=== PATIENT | female | born 1985 | race Caucasian/White ===

== ENCOUNTER 2019-09-14 08:20 | Inpatient (IN) | payer BC ==
[2019-09-14] MEDS ORDERED: Methylergonovine 0.2 MG/1 ML Amp IM PRN (10:36)
[2019-09-14] MEDS ORDERED: Sodium Chloride 0.9% 10 ML SDV IV PRN (10:36)
[2019-09-14] MEDS ORDERED: Sodium Chloride 0.9% 10 ML Syringe FLUSH PRN (10:36)
[2019-09-14] MEDS ORDERED: Tranexamic Acid 1,000 MG in Sodium Chloride 0.9% 100 ML IV PRN (10:36)
[2019-09-14] MEDS ORDERED: Water For Irrigation,Sterile 1,000 ML Container IRR PRN (10:36)
[2019-09-14] MEDS ORDERED: Carboprost Tromethamine 250 MCG/1 ML Amp IM PRN (10:36)
[2019-09-14] MEDS ORDERED: Misoprostol 200 MCG Tab PO PRN (10:36)
[2019-09-14] MEDS ORDERED: Butorphanol 1 MG/ML SDV IVPUSH PRN (10:36)
[2019-09-14] MEDS ORDERED: Sodium Chloride 0.9% 2.5 ML Syringe FLUSH PRN (10:36)
[2019-09-14] MEDS ORDERED: Lidocaine 1% 50 ML MDV INJECT PRN (10:36)
[2019-09-14] MEDS ORDERED: Nalbuphine 10 MG/1 ML Vial IVPUSH PRN (10:36)
[2019-09-14] MEDS ORDERED: Oxytocin/0.9 % Sodium Chloride 30 UNIT/500 ML BAG IV SCH (10:45)
[2019-09-14] MEDS: Lactated Ringers 1,000 ML IV SCH ×2 (10:55→11:58)
[2019-09-14] MEDS ORDERED: Bupivicaine/fentaNYL/NS 0 ML ONE (12:07)
[2019-09-14] MEDS ORDERED: fentaNYL 100 MCG/2 ML SDV ONE (12:08)
[2019-09-14] MEDS ORDERED: Bupivacaine 0.25% 10 ML SDV ONE (12:09)
[2019-09-14] MEDS ORDERED: Witch Hazel Medicated Pads 40/Jar TOP PRN (12:55)
[2019-09-14] MEDS ORDERED: Lanolin 100% Cream 7 GM Tube TOP PRN (12:55)
[2019-09-14] MEDS ORDERED: Acetaminophen 500 MG Tab PO PRN (12:55)
[2019-09-14] MEDS ORDERED: oxyCODONE 5 MG Tab PO PRN (12:55)
[2019-09-14] MEDS ORDERED: Benzocaine/Menthol 20%-0.5% Spray 78 GM Cannister TOP PRN (12:55)
[2019-09-14] MEDS ORDERED: Bisacodyl 10 MG Supp RECTAL PRN (12:55)
--- NOTE | 2019-09-14 13:00 | PCM.DEL ---
L & D Note - General Info Date of Service: 09/14/19 Mother's Due Date: 09/19/19 - Delivery Note Labor: Spontaneous Delivery Outcome: Livebirth Infant Delivery Method: Spontaneous Vaginal Delivery-Single Presentation: Vertex Nuchal Cord: Present Anesthesia Type: Local Anesthetic: Lidocaine (Xylocaine) 1% Plain Local Anesthetic Volume: 5cc Amniotic Fluid Description: Bloody Episiotomy Type: None Laceration: 1st Degree Suture type: Vicryl Suture size: 2-0 Placenta: Intact, Spontaneous Cord: 3 Vessels Resuscitation Needed: Yes : Suctioned, Stimulated, Warmed, [place] Used, Warmer Used Score 1 min: 7 Score 5 min: 9 - General Info Date of Service: 09/14/19 - Patient Data Weight - Most Recent: 92.079 kg Lab Results Last 24 Hours: Laboratory Results - last 24 hr 09/14/19 09/14/19 Range/Units 10:50 10:50 WBC 9.77 (4.0-11.0) K/uL RBC 4.13 L (4.30-5.90) M/uL Hgb 12.4 (12.0-16.0) g/dL Hct 38.4 (36.0-46.0) % MCV 93.0 (80.0-98.0) fL MCH 30.0 (27.0-32.0) pg MCHC 32.3 (31.0-37.0) g/dL RDW Std Deviation 49.0 (28.0-62.0) fl RDW Coeff of Steph 14 (11.0-15.0) % Plt Count 198 (150-400) K/uL MPV 12.40 H (7.40-12.00) fL Nucleated RBC % 0.0 /100WBC Nucleated RBCs # 0 K/uL Blood Type A POSITIVE Antibody Screen NEGATIVE Med Orders - Current: Current Medications Acetaminophen (Tylenol Extra Strength) 1,000 mg PO Q6H PRN PRN Reason: Pain Benzocaine/Menthol (Dermoplast Pain Relief 20%-0.5% [place]) 78 gm TOP ASDIRECTED PRN PRN Reason: Perineal Comfort Measure Bisacodyl (Dulcolax) 10 mg RECTAL ONETIME PRN PRN Reason: Constipation Bupropion HCl (Wellbutrin Xl) 150 mg PO DAILY ANKUR Butorphanol Tartrate (Stadol) 1 mg IVPUSH Q1H PRN PRN Reason: Pain Last Admin: 09/14/19 11:20 Dose: 1 mg Carboprost Tromethamine (Hemabate Ds) 250 mcg IM ASDIRECTED PRN PRN Reason: Post Hemorrhage Docusate Sodium (Colace) 100 mg PO BID PRN PRN Reason: Constipation Emollient Ointment (Lansinoh Hpa) 0 gm TOP ASDIRECTED PRN PRN Reason: Sore Nipples Escitalopram Oxalate (Lexapro) 20 mg PO DAILY [facility] Lactated Ringer's (Ringers, Lactated) 1,000 mls @ 150 mls/hr IV ASDIRECTED [facility] Last Admin: 09/14/19 11:58 Dose: 999 mls/hr Oxytocin/Sodium Chloride (Oxytocin 30 Unit/500 Ml-Ns) 30 unit in 500 mls @ 500 mls/hr IV TITRATE [facility] Tranexamic Acid 1,000 mg/ (Sodium Chloride) 110 mls @ 660 mls/hr IV ONETIME PRN PRN Reason: Bleeding Ibuprofen (Motrin) 800 mg PO Q8H PRN PRN Reason: Pain Lidocaine HCl (Xylocaine 1%) 50 ml INJECT ONETIME PRN PRN Reason: Laceration repair Methylergonovine Maleate (Methergine) 0.2 mg IM ASDIRECTED PRN PRN Reason: Post Hemorrhage Misoprostol (Cytotec) 200 mcg PO ONETIME PRN PRN Reason: Post Hemorrhage Nalbuphine HCl (Nubain) 10 mg IVPUSH Q1H PRN PRN Reason: Pain (severe 7-10) Oxycodone HCl (Oxycodone) 5 mg PO Q2H PRN PRN Reason: Pain Sodium Chloride (Saline Flush) 10 ml FLUSH ASDIRECTED PRN PRN Reason: Keep Vein Open Sodium Chloride (Saline Flush) 2.5 ml FLUSH ASDIRECTED PRN PRN Reason: Keep Vein Open Sodium Chloride (Normal Saline) 10 ml IV ASDIRECTED PRN PRN Reason: IV Use Sterile Water (Sterile Water For Irrigation) 1,000 ml IRR ASDIRECTED PRN PRN Reason: delivery Witch Nirmala (Tucks) 1 pad TOP ASDIRECTED PRN PRN Reason: comfort care Discontinued Medications Bupivacaine HCl (Sensorcaine-Mpf 0.25%) Confirm Administered Dose 10 ml .ROUTE .STK-MED ONE Stop: 09/14/19 12:10 Fentanyl (Sublimaze) Confirm Administered Dose 100 mcg .ROUTE .STK-MED ONE Stop: 09/14/19 12:09 Fentanyl/Bupivacaine HCl (Fentanyl/Bupivacaine/Ns 2 Mcg-0.125% 250 Ml) Confirm Administered Dose 250 mls @ as directed .ROUTE .STK-MED ONE Stop: 09/14/19 12:08 - Problem List & Annotations (1) Vaginal delivery SNOMED Code(s): 115810952 Code(s): O80 - ENCOUNTER FOR FULL-TERM UNCOMPLICATED DELIVERY Status: Acute Current Visit: Yes - Problem List Review Problem List Initiated/Reviewed/Updated: Yes - My Orders Last 24 Hours: My Active Orders 09/14/19 10:20 Patient Status [ADT] Routine Non Stress Test [RC] PER UNIT ROUTINE Up ad Luciana [RC] ASDIRECTED Vaginal Exam [RC] Click to Edit Vital Signs [RC] PER UNIT ROUTINE Resuscitation Status Routine 09/14/19 10:36 Notify Provider Vital Signs [RC] ASDIRECTED Butorphanol [Stadol] 1 mg IVPUSH Q1H PRN Carboprost Tromethamine [Hemabate DS] 250 mcg IM ASDIRECTED PRN Lidocaine 1% [Xylocaine 1%] 50 ml INJECT ONETIME PRN Methylergonovine [Methergine] 0.2 mg IM ASDIRECTED PRN Nalbuphine [Nubain] 10 mg IVPUSH Q1H PRN Sodium Chloride 0.9% [Normal Saline] 10 ml IV ASDIRECTED PRN Sodium Chloride 0.9% [Saline Flush] 10 ml FLUSH ASDIRECTED PRN Sodium Chloride 0.9% [Saline Flush] 2.5 ml FLUSH ASDIRECTED PRN Tranexamic Acid [Cyklokapron] 1,000 mg Sodium Chloride 0.9% [Normal Saline] 100 ml IV ONETIME Water For Irrigation,Sterile [Sterile Water for Irrigation] 1,000 ml IRR ASDIRECTED PRN miSOPROStoL [Cytotec] 200 mcg PO ONETIME PRN 09/14/19 10:37 Heart Tones [RC] CONTINUOUS Notify Provider [RC] PRN Up ad Luciana [RC] ASDIRECTED Vaginal Exam [RC] PRN Vital Signs [RC] PER UNIT ROUTINE Scalp Electrode [WOMSER] Per Unit Routine Peripheral IV Insertion Adult [OM.PC] Routine 09/14/19 10:38 Urinary Catheter Assessment [RC] ASDIRECTED 09/14/19 10:45 Insert Urinary Catheter [OM.PC] PRN Lactated Ringers [Ringers, Lactated] 1,000 ml IV ASDIRECTED Oxytocin/0.9 % Sodium Chloride [Oxytocin 30 Unit/500 ML-NS] 30 unit in 500 ml IV TITRATE 09/14/19 10:50 RPR (SYPHILIS SERO) W/ RFLX [REF] Routine 09/14/19 12:55 Patient Status [ADT] Routine May Shower [RC] ASDIRECTED Notify Provider Vital Signs [RC] ASDIRECTED Up ad Luciana [RC] ASDIRECTED Vital Signs [RC] PER UNIT ROUTINE Acetaminophen [Tylenol Extra Strength] 1,000 mg PO Q6H PRN Benzocaine/Menthol [Dermoplast Pain Relief 20%-0.5% [place]] 78 gm TOP ASDIRECTED PRN Docusate Sodium [Colace] 100 mg PO BID PRN Ibuprofen [Motrin] 800 mg PO Q8H PRN Lanolin [Lansinoh HPA] See Dose Instructions TOP ASDIRECTED PRN bisacodyL [Dulcolax] 10 mg RECTAL ONETIME PRN oxyCODONE 5 mg PO Q2H PRN witch Nirmala [Tucks] 1 pad TOP ASDIRECTED PRN Assess Lochia [WOMSER] Per Unit Routine Assess Uterine Involution [WOMSER] Per Unit Routine Breast Pump [WOMSER] Per Unit Routine Ice Therapy [OM.PC] Per Unit Routine Perineal Care [OM.PC] Per Unit Routine Peripheral IV Discontinue [OM.PC] Routine Sitz Bath [OM.PC] Per Unit Routine 09/14/19 12:56 Cooling Warming Measures [RC] ASDIRECTED 09/14/19 Lunch Clear Liquid Diet [DIET] Regular Diet [DIET] 09/15/19 05:11 HEMOGLOBIN/HEMATOCRIT,HH [HEME] Timed 09/15/19 09:00 Escitalopram [Lexapro] 20 mg PO DAILY buPROPion [Wellbutrin XL] 150 mg PO DAILY - Assessment Assessment:: 34yo s/p at 39w2d - Plan Plan:: Admit to unit for routine care.
[2019-09-14] MEDS: Docusate Sodium 100 MG Cap PO PRN (13:30)
[2019-09-14] MEDS: Ibuprofen 800 MG Tab PO PRN (14:47)
--- NOTE | 2019-09-14 19:25 | OR ---
SURGEON: Rosa Flores MD DATE OF PROCEDURE: 09/14/2019 PREOPERATIVE DIAGNOSES: 1. A 34-year-old, G3, P1-0-1-1, at 39 weeks and 2 days' gestation. 2. Labor. 3. Group B streptococcus negative. POSTOPERATIVE DIAGNOSES: 1. A 34-year-old, G3, P2-0-1-2, status post spontaneous vaginal delivery at 39 weeks and 2 days' gestation. 2. Group B streptococcus negative. 3. Nuchal cord x1. 4. First-degree perineal laceration. PROCEDURES: Spontaneous vaginal delivery and repair of first-degree perineal laceration. PRIMARY SURGEON: Rosa Flores MD ANESTHESIA: Stadol and 1% lidocaine. ESTIMATED BLOOD LOSS: 400 mL. FINDINGS: Live female in cephalic presentation. scores of 7 and 9 at one and five minutes respectively. Weight 3370 g. Nuchal cord x1. Placenta intact with 3-vessel cord. First-degree perineal laceration. INDICATIONS: This is a 34-year-old, G3, P1-0-1-1, who presented at 39 weeks and 2 days' gestation complaining of labor. Upon presentation, cervix was found to be 2 cm dilated and subsequently changed to 3 cm dilated. She was admitted to Labor and Delivery. She received Stadol for pain control and progressed to complete cervical dilation. I was called to the room. DESCRIPTION OF PROCEDURE: I arrived to the room. The scalp was at +4 station. Over the next contraction, the patient pushed and delivered a live female infant. Nuchal cord x1 was reduced after delivery of the body. The infant was placed on the maternal abdomen. After approximately 45 seconds, the cord was clamped and cut. The infant was taken to the warmer for resuscitation. The placenta then delivered via the Powell-Saini maneuver intact and with 3-vessel cord. The perineum was inspected and a first-degree perineal laceration was noted. This was infiltrated with 1% lidocaine. After adequate anesthesia, this was repaired with 2-0 Vicryl. The fundus was firm below the umbilicus with minimal lochia. The patient tolerated the delivery well. [id number] / MODL /[id number]
[2019-09-14] MEDS ORDERED: buPROPion 150 MG Tab.ER PO SCH (21:00)
[2019-09-14] MEDS ORDERED: Escitalopram 10 MG Tab PO SCH (21:00)
[2019-09-15] MEDS: Ibuprofen 800 MG Tab PO PRN ×2 (04:53→12:52)
[2019-09-15] MEDS: Docusate Sodium 100 MG Cap PO PRN (09:05)
--- NOTE | 2019-09-15 10:32 | PCM.PNPP ---
- General Info Date of Service: 09/15/19 Functional Status: Reports: Pain Controlled, Tolerating Diet, Ambulating - Review of Systems General: Reports: No Symptoms HEENT: Reports: No Symptoms Pulmonary: Reports: No Symptoms Cardiovascular: Reports: No Symptoms Gastrointestinal: Reports: No Symptoms Genitourinary: Reports: No Symptoms Musculoskeletal: Reports: No Symptoms Skin: Reports: No Symptoms Neurological: Reports: No Symptoms Psychiatric: Reports: No Symptoms - General Info Date of Service: 09/15/19 - Patient Data Vital Signs - Most Recent: Last Vital Signs Temp 36.2 C 09/15/19 07:35 Pulse 81 09/15/19 07:35 Resp 18 09/15/19 07:35 BP 107/58 L 09/15/19 07:35 Pulse Ox 97 09/15/19 07:35 Weight - Most Recent: 92.079 kg Lab Results - Last 24 Hours: Laboratory Results - last 24 hr 09/14/19 09/14/19 09/15/19 Range/Units 10:50 10:50 06:10 WBC 9.77 (4.0-11.0) K/uL RBC 4.13 L (4.30-5.90) M/uL Hgb 12.4 10.5 L (12.0-16.0) g/dL Hct 38.4 32.3 L (36.0-46.0) % MCV 93.0 (80.0-98.0) fL MCH 30.0 (27.0-32.0) pg MCHC 32.3 (31.0-37.0) g/dL RDW Std Deviation 49.0 (28.0-62.0) fl RDW Coeff of Steph 14 (11.0-15.0) % Plt Count 198 (150-400) K/uL MPV 12.40 H (7.40-12.00) fL Nucleated RBC % 0.0 /100WBC Nucleated RBCs # 0 K/uL Blood Type A POSITIVE Antibody Screen NEGATIVE Med Orders - Current: Current Medications Acetaminophen (Tylenol Extra Strength) 1,000 mg PO Q6H PRN PRN Reason: Pain Last Admin: 09/14/19 13:28 Dose: 1,000 mg Benzocaine/Menthol (Dermoplast Pain Relief 20%-0.5% [place]) 78 gm TOP ASDIRECTED PRN PRN Reason: Perineal Comfort Measure Last Admin: 09/14/19 14:47 Dose: 1 canister Bisacodyl (Dulcolax) 10 mg RECTAL ONETIME PRN PRN Reason: Constipation Bupropion HCl (Wellbutrin Xl) 150 mg PO BEDTIME [facility] Last Admin: 09/14/19 21:41 Dose: 150 mg Butorphanol Tartrate (Stadol) 1 mg IVPUSH Q1H PRN PRN Reason: Pain Last Admin: 09/14/19 11:20 Dose: 1 mg Carboprost Tromethamine (Hemabate Ds) 250 mcg IM ASDIRECTED PRN PRN Reason: Post Hemorrhage Docusate Sodium (Colace) 100 mg PO BID PRN PRN Reason: Constipation Last Admin: 09/15/19 09:05 Dose: 100 mg Emollient Ointment (Lansinoh Hpa) 0 gm TOP ASDIRECTED PRN PRN Reason: Sore Nipples Escitalopram Oxalate (Lexapro) 20 mg PO BEDTIME [facility] Last Admin: 09/14/19 21:42 Dose: 20 mg Lactated Ringer's (Ringers, Lactated) 1,000 mls @ 150 mls/hr IV ASDIRECTED [facility] Last Infusion: 09/14/19 12:30 Dose: 0 mls/hr Oxytocin/Sodium Chloride (Oxytocin 30 Unit/500 Ml-Ns) 30 unit in 500 mls @ 500 mls/hr IV TITRATE [facility] Last Admin: 09/14/19 12:30 Dose: 500 mls/hr Tranexamic Acid 1,000 mg/ (Sodium Chloride) 110 mls @ 660 mls/hr IV ONETIME PRN PRN Reason: Bleeding Ibuprofen (Motrin) 800 mg PO Q8H PRN PRN Reason: Pain Last Admin: 09/15/19 04:53 Dose: 800 mg Lidocaine HCl (Xylocaine 1%) 50 ml INJECT ONETIME PRN PRN Reason: Laceration repair Last Admin: 09/14/19 13:00 Dose: 50 ml Methylergonovine Maleate (Methergine) 0.2 mg IM ASDIRECTED PRN PRN Reason: Post Hemorrhage Misoprostol (Cytotec) 200 mcg PO ONETIME PRN PRN Reason: Post Hemorrhage Nalbuphine HCl (Nubain) 10 mg IVPUSH Q1H PRN PRN Reason: Pain (severe 7-10) Oxycodone HCl (Oxycodone) 5 mg PO Q2H PRN PRN Reason: Pain Sodium Chloride (Saline Flush) 10 ml FLUSH ASDIRECTED PRN PRN Reason: Keep Vein Open Sodium Chloride (Saline Flush) 2.5 ml FLUSH ASDIRECTED PRN PRN Reason: Keep Vein Open Sodium Chloride (Normal Saline) 10 ml IV ASDIRECTED PRN PRN Reason: IV Use Sterile Water (Sterile Water For Irrigation) 1,000 ml IRR ASDIRECTED PRN PRN Reason: delivery Last Admin: 09/14/19 13:00 Dose: 1,000 ml Witch Nirmala (Tucks) 1 pad TOP ASDIRECTED PRN PRN Reason: comfort care Last Admin: 09/14/19 14:47 Dose: 1 tub Discontinued Medications Bupivacaine HCl (Sensorcaine-Mpf 0.25%) Confirm Administered Dose 10 ml .ROUTE .Anagran-MED ONE Stop: 09/14/19 12:10 Last Admin: 09/14/19 20:23 Dose: Not Given Fentanyl (Sublimaze) Confirm Administered Dose 100 mcg .ROUTE .STK-MED ONE Stop: 09/14/19 12:09 Last Admin: 09/14/19 20:23 Dose: Not Given Fentanyl/Bupivacaine HCl (Fentanyl/Bupivacaine/Ns 2 Mcg-0.125% 250 Ml) Confirm Administered Dose 250 mls @ as directed .ROUTE .ExoMED ONE Stop: 09/14/19 12:08 Last Admin: 09/14/19 20:23 Dose: Not Given - Interaction Infant Disposition, : in Room with Family Interaction: Holding Feeding: Bottle Fed Infant Support Person: - Recovery Exam Fundal Tone: Firm Fundal Level: 1 Fingerbreadths Below Umbilicus Fundal Placement: Midline Lochia Amount: Scant Lochia Color: Rubra/Red Perineum Description: Other (see below) Other Perinuem Description: mild swelling Episiotomy/Laceration: Approximated Bladder Status: Voiding Urinary Elimination: Voided - Exam General: Alert, Oriented HEENT: Pupils Equal Neck: Supple Lungs: Normal Respiratory Effort GI/Abdominal Exam: Soft, Non-Tender, No Distention, No Mass Extremities: Normal Inspection, Non-Tender, No Pedal Edema Skin: Warm, Dry, Intact Neurological: No New Focal Deficit Psy/Mental Status: Alert, Normal Affect, Normal Mood - Problem List & Annotations (1) Vaginal delivery SNOMED Code(s): 274183640 Code(s): O80 - ENCOUNTER FOR FULL-TERM UNCOMPLICATED DELIVERY Status: Acute Current Visit: Yes - Problem List Review Problem List Initiated/Reviewed/Updated: Yes - My Orders Last 24 Hours: My Active Orders 09/15/19 08:56 Ready for Discharge [RC] PER UNIT ROUTINE - Assessment Assessment:: PPD#1 after , stable, minimal lochia, not . Denies pain or other concerns, would like to be discharged today. - Plan Plan:: Discharge instructions reviewed. Dismiss to home today.
== END 2019-09-15 14:20 | disposition home or self-care (01) | DRG 560 ==
LOC: MW.OB 08:20 → MW.OBCHECK 08:20 → MW.OB 10:30 → OBSVTOIN 12:26 → MW.OB 16:15
PROVIDERS: ADMIT Obstetrics & Gynecology; ATTEND Obstetrics & Gynecology
PROC: 10E0XZZ Delivery of Products of Conception, External Approach (ICD-10-PCS; principal; 2019-09-14)
PROC: 0HQ9XZZ Repair Perineum Skin, External Approach (ICD-10-PCS; 2019-09-14)
DX: O69.81X0 Labor and delivery complicated by cord around neck, without compression, not applicable or unspecified (principal); O70.1 Second degree perineal laceration during delivery; Z3A.39 39 weeks gestation of pregnancy; Z37.0 Single live birth
CPT/HCPCS: 36415; 59025; 59409; 85014; 85018; 85027; 86592; 86593; 86850; 86900; 86901; A9270-GY; J0595; J2001; J2590; J7120

== ENCOUNTER 2021-05-04 04:41 | Inpatient (IN) | payer BC ==
[2021-05-04] MEDS ORDERED: Misoprostol 200 MCG Tab PO PRN (05:13)
[2021-05-04] MEDS ORDERED: Butorphanol 1 MG/ML SDV IVPUSH PRN (05:13)
[2021-05-04] MEDS ORDERED: Nalbuphine 10 MG/1 ML Vial IVPUSH PRN (05:13)
[2021-05-04] MEDS ORDERED: Sodium Chloride 0.9% 20 ML SDV IV PRN (05:13)
[2021-05-04] MEDS ORDERED: Water For Irrigation,Sterile 1,000 ML Container IRR PRN (05:13)
[2021-05-04] MEDS ORDERED: Carboprost Tromethamine 250 MCG/1 ML Amp IM PRN (05:13)
[2021-05-04] MEDS ORDERED: Terbutaline 1 MG/ML SDV SUBCUT PRN (05:13)
[2021-05-04] MEDS ORDERED: Lidocaine 1% 50 ML MDV INJECT PRN (05:13)
[2021-05-04] MEDS ORDERED: Sodium Chloride 0.9% 2.5 ML Syringe FLUSH PRN (05:13)
[2021-05-04] MEDS ORDERED: Sodium Chloride 0.9% 10 ML Syringe FLUSH PRN (05:13)
[2021-05-04] MEDS ORDERED: Ondansetron 4 MG/2 ML SDV IVPUSH PRN (05:13)
[2021-05-04] MEDS ORDERED: Tranexamic Acid 1,000 MG in Sodium Chloride 0.9% 100 ML IV PRN ×2 (05:13→13:16)
[2021-05-04] MEDS ORDERED: Methylergonovine 0.2 MG/1 ML Amp IM PRN ×2 (05:13→13:16)
[2021-05-04] MEDS ORDERED: Oxytocin/0.9 % Sodium Chloride 30 UNIT/500 ML BAG IV SCH ×2 (05:15)
[2021-05-04] MEDS ORDERED: Lactated Ringers 1,000 ML IV SCH (05:15)
[2021-05-04] MEDS ORDERED: Ropivacaine HCl/PF 200 ML ONE (08:59)
[2021-05-04] MEDS ORDERED: ePHEDrine 50 MG/ML SDV IVPUSH PRN ×2 (09:18)
--- NOTE | 2021-05-04 09:19 | PCM.PREANE ---
Preanesthetic Assessment - Anesthesia/Transfusion/Family Hx Anesthesia History: Prior Anesthesia Without Reaction Transfusion History: No Prior Transfusion(s) Type of Transfusion Reactions: Reports: Unknown - Review of Systems General: No Symptoms Pulmonary: No Symptoms Cardiovascular: No Symptoms Gastrointestinal: No Symptoms Neurological: No Symptoms Other: Reports: None - Physical Assessment NPO Status Date: 05/04/21 NPO Status Time: 00:00 Height: 5 ft 3 in Weight: 203 lb ASA Class: 2 Mental Status: Alert & Oriented x3 Airway Class: Mallampati = 2 Dentition: Reports: Normal Dentition Thyro-Mental Finger Breadths: 3 Mouth Opening Finger Breadths: 3 ROM/Head Extension: Full Lungs: Clear to Auscultation, Normal Respiratory Effort Cardiovascular: Regular Rate, Regular Rhythm - Lab Values: Laboratory Last Values WBC 7.10 K/uL (4.0-11.0) 05/04/21 05:10 RBC 4.05 M/uL (4.30-5.90) L 05/04/21 05:10 Hgb 12.3 g/dL (12.0-16.0) 05/04/21 05:10 Hct 36.6 % (36.0-46.0) 05/04/21 05:10 MCV 90.4 fL (80.0-98.0) 05/04/21 05:10 MCH 30.4 pg (27.0-32.0) 05/04/21 05:10 MCHC 33.6 g/dL (31.0-37.0) 05/04/21 05:10 RDW Std Deviation 47.4 fl (28.0-62.0) 05/04/21 05:10 RDW Coeff of Steph 15 % (11.0-15.0) 05/04/21 05:10 Plt Count 197 K/uL (150-400) 05/04/21 05:10 MPV 12.40 fL (7.40-12.00) H 05/04/21 05:10 Nucleated RBC % 0.0 /100WBC 05/04/21 05:10 Nucleated RBCs # 0 K/uL 05/04/21 05:10 SARS-CoV-2 RNA (ALIRIO) NEGATIVE (NEGATIVE) 05/04/21 05:25 Blood Type A POSITIVE 05/04/21 05:10 Antibody Screen NEGATIVE 05/04/21 05:10 - Allergies Allergies/Adverse Reactions: Allergies Allergy/AdvReac Type Severity Reaction Status Date / Time No Known Allergies Allergy Verified 07/22/19 09:31 - Acknowledgements Anesthesia Type Planned: Epidural Pt an Appropriate Candidate for the Planned Anesthesia: Yes Alternatives and Risks of Anesthesia Discussed w Pt/Guardian: Yes Pt/Guardian Understands and Agrees with Anesthesia Plan: Yes PreAnesthesia Questionnaire HEENT History: Reports: None Cardiovascular History: Reports: None Respiratory History: Reports: None Gastrointestinal History: Reports: None Genitourinary History: Reports: None EXECUTIVE CONSULTANT History: Reports: Musculoskeletal History: Reports: None Neurological History: Reports: None Psychiatric History: Reports: None Endocrine/Metabolic History: Reports: None Hematologic History: Reports: None Immunologic History: Reports: None Oncologic (Cancer) History: Reports: None Dermatologic History: Reports: None - Infectious Disease History Infectious Disease History: Reports: Chicken Pox, Novel Coronavirus - Past Surgical History Head Surgeries/Procedures: Reports: None HEENT Surgical History: Reports: Tonsillectomy Cardiovascular Surgical History: Reports: None Respiratory Surgical History: Reports: None GI Surgical History: Reports: Appendectomy Female Surgical History: Reports: None Endocrine Surgical History: Reports: None Neurological Surgical History: Reports: None Musculoskeletal Surgical History: Reports: Other (See Below) Other Musculoskeletal Surgeries/Procedures:: joint repair both foot in 2016 and 2019 due to loosened cartilage Oncologic Surgical History: Reports: None Dermatological Surgical History: Reports: None - SUBSTANCE USE Tobacco Use Status *Q: Former Tobacco User Tobacco Use Within Last Twelve Months: Cigarettes Second Hand Smoke Exposure: No Recreational Drug Use History: No - HOME MEDS Home Medications: Home Meds Docusate Sodium [Colace] 100 mg PO DAILY 08/30/19 [History] Doxylamine Succinate [Unisom] 08/30/19 [History] Escitalopram [Lexapro] 20 mg PO DAILY 08/30/19 [History] Iron 08/30/19 [History] Magnesium Hydroxide [Goodman' Milk of Magnesia] 08/30/19 [History] Melatonin 08/30/19 [History] Pnv #30/Iron Carb&Aspg/Fa/Om3 [OB Complete with DHA Softgel] 08/30/19 [History] buPROPion HCL [Wellbutrin Xl] 150 mg PO 08/30/19 [History] - CURRENT (IN HOUSE) MEDS Current Meds: Current Medications Butorphanol Tartrate (Butorphanol 1 Mg/Ml Sdv) 1 mg IVPUSH Q1H PRN PRN Reason: Pain (severe 7-10) Carboprost Tromethamine (Carboprost Tromethamine 250 Mcg/1 Ml Amp) 250 mcg IM ASDIRECTED PRN PRN Reason: Post Hemorrhage Oxytocin/Sodium Chloride (Oxytocin 30 Unit In Ns 0.9% 500 Ml Premix) 30 unit in 500 mls @ 999 mls/hr IV TITRATE ANKUR Tranexamic Acid 1,000 mg/ (Sodium Chloride) 110 mls @ 660 mls/hr IV ONETIME PRN PRN Reason: Bleeding Oxytocin/Sodium Chloride (Oxytocin 30 Unit In Ns 0.9% 500 Ml Premix) 30 unit in 500 mls @ 2 mls/hr IV TITRATE ANKUR; Protocol Last Titration: 05/04/21 07:25 Dose: 6 munits/min, 6 mls/hr Documented by: Lactated Ringer's (Ringers, Lactated) 1,000 mls @ 150 mls/hr IV ASDIRECTED ANKUR Last Admin: 05/04/21 06:05 Dose: 150 mls/hr Documented by: Lidocaine HCl (Lidocaine 1% 50 Ml Mdv) 50 ml INJECT ONETIME PRN PRN Reason: Laceration repair Methylergonovine Maleate (Methylergonovine 0.2 Mg/1 Ml Amp) 0.2 mg IM ASDIRECTED PRN PRN Reason: Post Hemorrhage Misoprostol (Misoprostol 200 Mcg Tab) 200 mcg PO ONETIME PRN PRN Reason: Post Hemorrhage Nalbuphine HCl (Nalbuphine 10 Mg/1 Ml Vial) 10 mg IVPUSH Q1H PRN PRN Reason: Pain (severe 7-10) Ondansetron HCl (Ondansetron 4 Mg/2 Ml Sdv) 4 mg IVPUSH Q4H PRN PRN Reason: Nausea/Vomiting Sodium Chloride (Sodium Chloride 0.9% 10 Ml Syringe) 10 ml FLUSH ASDIRECTED PRN PRN Reason: Keep Vein Open Sodium Chloride (Sodium Chloride 0.9% 2.5 Ml Syringe) 2.5 ml FLUSH ASDIRECTED PRN PRN Reason: Keep Vein Open Sodium Chloride (Sodium Chloride 0.9% 20 Ml Sdv) 10 ml IV ASDIRECTED PRN PRN Reason: IV Use Sterile Water (Water For Irrigation,Sterile 1,000 Ml Container) 1,000 ml IRR ASDIRECTED PRN PRN Reason: delivery Terbutaline Sulfate (Terbutaline 1 Mg/Ml Sdv) 0.25 mg SUBCUT ASDIRECTED PRN PRN Reason: Tacysystole Discontinued Medications Ropivacaine (Naropin 0.2%) Confirm Administered Dose 200 mls @ as directed .[facility] Stop: 05/04/21 09:00
--- NOTE | 2021-05-04 09:19 | PCM.POSTAN ---
POST ANESTHESIA ASSESSMENT - MENTAL STATUS Mental Status: Alert, Oriented - RESPIRATORY Respiratory Status: Respiratory Rate WNL, Airway Patent, O2 Saturation Stable - CARDIOVASCULAR CV Status: Pulse Rate WNL, Blood Pressure Stable - GASTROINTESTINAL GI Status: No Symptoms - POST OP HYDRATION Hydration Status: Adequate & Stable
--- NOTE | 2021-05-04 09:21 | PCM.SN.2 ---
- Pre-Procedure Checklist Attending Provider Aware: Yes Chart Reviewed: Yes Consent Signed: Yes Labs Reviewed: Yes VS/FHR Reviewed: Yes Patient Identification Confirmation Method: Reports: Chart Visual, ID Band Visual, Verbal Patient Pt an Appropriate Candidate for the Planned Anesthesia: Yes Alternatives and Risks of Anesthesia Discussed w Pt/Guardian: Yes - Procedure Procedure Start Date: 05/04/21 Procedure Start Time: 08:[address]: Reports: Blood Pressure, Heart Rate, SPO2 Functional IV: Yes Safety Measures: Reports: Patient Identified, Procedure Verified, Site Verified, Procedure Time Out Patient Position: Reports: Sitting Prep: Reports: Alcohol x3, Betadine x3 Local Anesthetic: Reports: Intradermal Wheal w Lidocaine 1% Regional Placement Level: Reports: L3-4 Needle: Reports: 17 g Touhy Approach: Reports: Midline Technique: Reports: YONATAN Glass Syringe Parasthesia: Reports: None Fluid Obtained: Reports: None Test Dose Medication: Reports: Lidocaine 1.5% w Epinephrine 1:200,000 Test Dose Response: Reports: Negative Continuous Infusion Start Time: 08:55 Continuous Infusion Medication: 0.2% Naropin Continuous Infusion Rate: 15 Continuous Infusion PCS Bolus Option: 4 Continuous Infusion Lockout Dose (cc/hr): 20 Patient Position Post Placement: Reports: Supline/HOLLIE Post-procedure Pain Level: 2 VS and FHR Monitored in Unit Post Placement: Yes Procedure End Date: 05/04/21 Procedure End Time: 09:44
[2021-05-04] MEDS ORDERED: Ropivacaine/PF 400 MG/200 ML PCA EPIDUR SCH (09:30)
[2021-05-04] MEDS ORDERED: fentaNYL 100 MCG/2 ML SDV ONE (11:08)
[2021-05-04] MEDS ORDERED: Lidocaine 2% 100 MG/5 ML Syringe ONE (11:08)
--- NOTE | 2021-05-04 13:15 | PCM.DEL ---
L & D Note - General Info Date of Service: 05/04/21 Mother's Due Date: 05/11/21 - Delivery Note Labor: Induced by Oxytocin Delivery Outcome: Livebirth Infant Delivery Method: Spontaneous Vaginal Delivery-Single Presentation: Left Occiput Anterior (INGA) Nuchal Cord: None Prep: Other Anesthesia Type: Epidural Amniotic Fluid Description: Clear Laceration: 2nd Degree Suture type: Vicryl Suture size: 3-0 Placenta: Intact, Spontaneous Cord: 3 Vessels Estimated Blood Loss: 200 Resuscitation Needed: Yes Score 1 min: 7 Score 5 min: 9 - General Info Date of Service: 05/04/21 - Patient Data Weight - Most Recent: 92.079 kg Lab Results Last 24 Hours: Laboratory Results - last 24 hr 05/04/21 05/04/21 05/04/21 Range/Units 05:10 05:10 05:25 WBC 7.10 (4.0-11.0) K/uL RBC 4.05 L (4.30-5.90) M/uL Hgb 12.3 (12.0-16.0) g/dL Hct 36.6 (36.0-46.0) % MCV 90.4 (80.0-98.0) fL MCH 30.4 (27.0-32.0) pg MCHC 33.6 (31.0-37.0) g/dL RDW Std Deviation 47.4 (28.0-62.0) fl RDW Coeff of Steph 15 (11.0-15.0) % Plt Count 197 (150-400) K/uL MPV 12.40 H (7.40-12.00) fL Nucleated RBC % 0.0 /100WBC Nucleated RBCs # 0 K/uL SARS-CoV-2 RNA (ALIRIO) NEGATIVE (NEGATIVE) Blood Type A POSITIVE Antibody Screen NEGATIVE Med Orders - Current: Current Medications Butorphanol Tartrate (Butorphanol 1 Mg/Ml Sdv) 1 mg IVPUSH Q1H PRN PRN Reason: Pain (severe 7-10) Carboprost Tromethamine (Carboprost Tromethamine 250 Mcg/1 Ml Amp) 250 mcg IM ASDIRECTED PRN PRN Reason: Post Hemorrhage Ephedrine Sulfate (Ephedrine 50 Mg/Ml Sdv) 10 mg IVPUSH Q1M PRN PRN Reason: Hypotension Ephedrine Sulfate (Ephedrine 50 Mg/Ml Sdv) 10 mg IVPUSH Q5M PRN PRN Reason: Hypotension Oxytocin/Sodium Chloride (Oxytocin 30 Unit In Ns 0.9% 500 Ml Premix) 30 unit in 500 mls @ 999 mls/hr IV TITRATE ANKUR Tranexamic Acid 1,000 mg/ (Sodium Chloride) 110 mls @ 660 mls/hr IV ONETIME PRN PRN Reason: Bleeding Oxytocin/Sodium Chloride (Oxytocin 30 Unit In Ns 0.9% 500 Ml Premix) 30 unit in 500 mls @ 2 mls/hr IV TITRATE ANKUR; Protocol Last Titration: 05/04/21 10:32 Dose: 12 munits/min, 12 mls/hr Documented by: Lactated Ringer's (Ringers, Lactated) 1,000 mls @ 150 mls/hr IV ASDIRECTED ANKUR Last Admin: 05/04/21 06:05 Dose: 150 mls/hr Documented by: Lidocaine HCl (Lidocaine 1% 50 Ml Mdv) 50 ml INJECT ONETIME PRN PRN Reason: Laceration repair Methylergonovine Maleate (Methylergonovine 0.2 Mg/1 Ml Amp) 0.2 mg IM ASDIRECTED PRN PRN Reason: Post Hemorrhage Miscellaneous Medication (Phenylephrine Hcl In 0.9% Nacl 1 Mg/10 Ml Syringe) 0.1 mg IVPUSH Q1M PRN PRN Reason: Hypotension Misoprostol (Misoprostol 200 Mcg Tab) 200 mcg PO ONETIME PRN PRN Reason: Post Hemorrhage Nalbuphine HCl (Nalbuphine 10 Mg/1 Ml Vial) 10 mg IVPUSH Q1H PRN PRN Reason: Pain (severe 7-10) Ondansetron HCl (Ondansetron 4 Mg/2 Ml Sdv) 4 mg IVPUSH Q4H PRN PRN Reason: Nausea/Vomiting Ropivacaine (Ropivacaine/Pf 400 Mg/200 Ml Rocket Engine Tester) 400 mg EPIDUR ASDIRECTED ANKUR Sodium Chloride (Sodium Chloride 0.9% 10 Ml Syringe) 10 ml FLUSH ASDIRECTED PRN PRN Reason: Keep Vein Open Sodium Chloride (Sodium Chloride 0.9% 2.5 Ml Syringe) 2.5 ml FLUSH ASDIRECTED PRN PRN Reason: Keep Vein Open Sodium Chloride (Sodium Chloride 0.9% 20 Ml Sdv) 10 ml IV ASDIRECTED PRN PRN Reason: IV Use Sterile Water (Water For Irrigation,Sterile 1,000 Ml Container) 1,000 ml IRR ASDIRECTED PRN PRN Reason: delivery Terbutaline Sulfate (Terbutaline 1 Mg/Ml Sdv) 0.25 mg SUBCUT ASDIRECTED PRN PRN Reason: Tacysystole Discontinued Medications Fentanyl (Fentanyl 100 Mcg/2 Ml Sdv) Confirm Administered Dose 100 mcg .ROUTE .STK-MED ONE Stop: 05/04/21 11:09 Ropivacaine (Naropin 0.2%) Confirm Administered Dose 200 mls @ as directed .ROUTE .STK-MED ONE Stop: 05/04/21 09:00 Lidocaine HCl (Lidocaine 2% 100 Mg/5 Ml Syringe) Confirm Administered Dose 100 mg .ROUTE .STK-MED ONE Stop: 05/04/21 11:09 - Exam Urinary Catheter Total Time: 0Days 0Hours - Problem List & Annotations (1) Vaginal delivery SNOMED Code(s): 698640931 Code(s): O80 - ENCOUNTER FOR FULL-TERM UNCOMPLICATED DELIVERY Status: Acute Current Visit: No - Problem List Review Problem List Initiated/Reviewed/Updated: Yes - My Orders Last 24 Hours: My Active Orders 05/04/21 05:10 RPR (SYPHILIS SERO) W/ RFLX [REF] Routine 05/04/21 05:13 Patient Status [ADT] Routine Bedrest Bathroom Privileges [RC] ASDIRECTED Communication Order [RC] ASDIRECTED Communication Order [RC] ASDIRECTED Heart Tones [RC] CONTINUOUS Non Stress Test [RC] PER UNIT ROUTINE May Shower [RC] ASDIRECTED Notify Provider [RC] PRN Notify Provider [RC] PRN Notify Provider [RC] STAT Oxygen Therapy [RC] ASDIRECTED Up ad Luciana [RC] ASDIRECTED Vaginal Exam [RC] PRN Vital Signs [RC] PER UNIT ROUTINE Butorphanol [Stadol] 1 mg IVPUSH Q1H PRN Carboprost Tromethamine [Hemabate DS] 250 mcg IM ASDIRECTED PRN Lidocaine 1% [Xylocaine 1%] 50 ml INJECT ONETIME PRN Methylergonovine [Methergine] 0.2 mg IM ASDIRECTED PRN Nalbuphine [Nubain] 10 mg IVPUSH Q1H PRN Ondansetron [Zofran] 4 mg IVPUSH Q4H PRN Sodium Chloride 0.9% [Normal Saline] 10 ml IV ASDIRECTED PRN Sodium Chloride 0.9% [Saline Flush] 10 ml FLUSH ASDIRECTED PRN Sodium Chloride 0.9% [Saline Flush] 2.5 ml FLUSH ASDIRECTED PRN Terbutaline [Brethine] 0.25 mg SUBCUT ASDIRECTED PRN Tranexamic Acid [Cyklokapron] 1,000 mg Sodium Chloride 0.9% [Normal Saline] 100 ml IV ONETIME Water For Irrigation,Sterile [Sterile Water for Irrigation] 1,000 ml IRR ASDIRECTED PRN miSOPROStoL [Cytotec] 200 mcg PO ONETIME PRN Scalp Electrode [WOMSER] Per Unit Routine Peripheral IV Insertion Adult [OM.PC] Routine Resuscitation Status Routine 05/04/21 05:15 Lactated Ringers [Ringers, Lactated] 1,000 ml IV ASDIRECTED Oxytocin/0.9 % Sodium Chloride [Oxytocin 30 Unit in NS 0.9% 500 ML Premix] 30 unit in 500 ml IV TITRATE Oxytocin/0.9 % Sodium Chloride [Oxytocin 30 Unit in NS 0.9% 500 ML Premix] 30 unit in 500 ml IV TITRATE 05/04/21 Breakfast Clear Liquid Diet [DIET]
[2021-05-04] MEDS ORDERED: Ibuprofen 400 MG Tab PO PRN (13:16)
[2021-05-04] MEDS ORDERED: Lanolin 100% Cream 7 GM Tube TOP PRN (13:16)
[2021-05-04] MEDS ORDERED: Acetaminophen 500 MG Tab PO PRN (13:16)
[2021-05-04] MEDS ORDERED: Docusate Sodium 100 MG Cap PO PRN (13:16)
[2021-05-04] MEDS ORDERED: Benzocaine/Menthol 20%-0.5% Spray 78 GM Cannister TOP PRN (13:16)
[2021-05-04] MEDS ORDERED: Bisacodyl 10 MG Supp RECTAL PRN (13:16)
[2021-05-04] MEDS ORDERED: Witch Hazel Medicated Pads 40/Jar TOP PRN (13:16)
--- NOTE | 2021-05-04 14:26 | PCM48HPAN ---
Post Anesthesia Note - EVALUATION WITHIN 48HRS OF ANESTHETIC Vital Signs in Normal Range: Yes Patient Participated in Evaluation: Yes Respiratory Function Stable: Yes Airway Patent: Yes Cardiovascular Function Stable: Yes Hydration Status Stable: Yes Pain Control Satisfactory: Yes Nausea and Vomiting Control Satisfactory: Yes Mental Status Recovered: Yes
[2021-05-04] MEDS: Ibuprofen 800 MG Tab PO PRN (15:10)
[2021-05-04] MEDS: buPROPion 150 MG Tab.ER PO SCH (21:43)
[2021-05-04] MEDS: Acetaminophen 500 MG Tab PO PRN (21:43)
[2021-05-04] MEDS: Escitalopram 10 MG Tab PO SCH (21:43)
--- NOTE | 2021-05-04 22:00 | OR ---
SURGEON: Elodia Hodge M.D. DATE OF PROCEDURE: 05/04/2021 PREOPERATIVE DIAGNOSES: 1. 39-week intrauterine . 2. History of rapid labor. 3. Lives remote from the hospital. POSTOPERATIVE DIAGNOSES: 1. 39-week intrauterine . 2. History of rapid labor. 3. Lives remote from the hospital. PROCEDURES: 1. Pitocin induction of labor. 2. Term spontaneous vaginal delivery. 3. Repair of second-degree laceration. PRIMARY SURGEON: Elodia Hodge M.D. ANESTHESIA: Epidural. ESTIMATED BLOOD LOSS: Less than 200 mL. FINDINGS: 1. Liveborn male. 2. score of 5 and 7. 3. Weighing 8 pounds 2 ounces. 4. Placenta spontaneous, Schultze intact with three vessels. 5. Second-degree perineal laceration repaired. COMPLICATIONS: None known. DISPOSITION: Mother is in LDR in good condition. Baby is in nursery for observation. BRIEF HISTORY: This is a 36-year-old female. She is G4, P2-0-1-2. She presents at 39 weeks' gestation for induction of labor. Initially, 2 cm, 70%, -3 station. She received Pitocin. When she was 3 to 4 cm dilated, artificial rupture of membranes was performed. She was known to be group B strep negative. Shortly thereafter, she received an epidural for pain control. She had category 1 heart tones throughout labor and at the time when she was 5 cm, she progressed rapidly to complete over the following 45 minutes, during which time she had some variable decelerations. DESCRIPTION OF PROCEDURE: With the patient in dorsal lithotomy position, the patient pushed over four contractions to a 5+ station, at which time the head was delivered spontaneously and atraumatically over the perineum with support, with subsequent delivery of the infant's shoulders and body without any difficulty. The infant was bulb suctioned by nose and mouth and the was handed to the mother in the presence of the nurse in attendance at delivery. The was a liveborn male. score of 5 and 7. The cord was clamped x2 and cut, and the infant was taken to the warmer for further resuscitation at approximately 1 minute. The cord blood was collected for cord ABGs as well as routine cord blood sampling. Pitocin was initiated after delivery of the infant to assist with delivery of the placenta which was delivered spontaneously, Schultze intact with three vessels. Upon inspection of pelvis and perineum, there were no periurethral, vaginal sidewall, cervical, or rectal lacerations. There was a small second-degree perineal laceration that was repaired with a running lock suture of 3-0 Vicryl for the vaginal mucosa, a deep running suture of the same for the perineal tissue, and a running subcuticular suture of the same for the skin. Final sponge, needle, and instrument counts were correct. There were no complications. Mother is in LDR in good condition, and baby is in nursery under observation with the dehydration unit operator. AXEL / JOSE J /[id number]
[2021-05-05] MEDS: Ibuprofen 800 MG Tab PO PRN ×3 (04:44→22:13)
[2021-05-05] MEDS: Acetaminophen 500 MG Tab PO PRN ×4 (04:45→22:13)
[2021-05-05] MEDS ORDERED: Ondansetron 4 MG/2 ML SDV ONE ×2 (07:16→07:17)
[2021-05-05] MEDS ORDERED: fentaNYL 100 MCG/2 ML SDV ONE (07:16)
[2021-05-05] MEDS ORDERED: propofoL 100 ML ONE (07:17)
[2021-05-05] MEDS ORDERED: Lidocaine 2% 100 MG/5 ML Syringe ONE (07:17)
[2021-05-05] MEDS ORDERED: Midazolam 1 MG/ML 2 ML SDV ONE (08:00)
[2021-05-05] MEDS ORDERED: Metoclopramide 10 MG/2 ML SDV ONE (08:00)
[2021-05-05] MEDS ORDERED: Ketorolac 30 MG/ML SDV ONE (08:01)
--- NOTE | 2021-05-05 08:40 | PCM.PNPP ---
- General Info Date of Service: 05/05/21 Functional Status: Reports: Pain Controlled, Tolerating Diet, Ambulating, Urinating - Review of Systems General: Reports: No Symptoms HEENT: Reports: No Symptoms Pulmonary: Reports: No Symptoms Cardiovascular: Reports: No Symptoms Gastrointestinal: Reports: No Symptoms Genitourinary: Reports: No Symptoms Musculoskeletal: Reports: No Symptoms Skin: Reports: No Symptoms Neurological: Reports: No Symptoms Psychiatric: Reports: No Symptoms - Patient Data Vital Signs - Most Recent: Last Vital Signs Temp 35.9 C L 05/05/21 04:00 Pulse 85 05/05/21 04:00 Resp 18 05/05/21 04:00 BP 126/70 05/05/21 04:00 Pulse Ox 96 05/04/21 19:00 Weight - Most Recent: 92.079 kg Lab Results - Last 24 Hours: Laboratory Results - last 24 hr 05/04/21 05/05/21 Range/Units 12:56 06:10 Hgb 11.2 L (12.0-16.0) g/dL Hct 33.9 L (36.0-46.0) % Cord ABG pH 7.247 (7.18-7.38) Cord ABG Base Excess -4 (-10--2) Cord VBG pH 7.221 L (7.25-7.45) Cord VBG Base Excess -5 (-10--2) Med Orders - Current: Current Medications Acetaminophen (Acetaminophen 500 Mg Tab) 500 mg PO Q4H PRN PRN Reason: Pain (mild 1-3) Acetaminophen (Acetaminophen 500 Mg Tab) 1,000 mg PO Q4H PRN PRN Reason: Pain (mild 1-3) Last Admin: 05/05/21 04:45 Dose: 1,000 mg Documented by: Benzocaine/Menthol (Benzocaine/Menthol 20%-0.5% Bunkie 78 Gm Cannister) 78 gm TOP ASDIRECTED PRN PRN Reason: Perineal Comfort Measure Last Admin: 05/04/21 15:09 Dose: 1 canister Documented by: Bisacodyl (Bisacodyl 10 Mg Supp) 10 mg RECTAL ONETIME PRN PRN Reason: Constipation Bupropion HCl (Bupropion 150 Mg Tab.Er) 150 mg PO BEDTIME AKNUR Last Admin: 05/04/21 21:43 Dose: 150 mg Documented by: Docusate Sodium (Docusate Sodium 100 Mg Cap) 100 mg PO Q12H PRN PRN Reason: Constipation Docusate Sodium (Docusate Sodium 100 Mg Cap) 100 mg PO DAILY [facility] Emollient Ointment (Lanolin 100% Cream 7 Gm Tube) 0 gm TOP ASDIRECTED PRN PRN Reason: Sore Nipples Escitalopram Oxalate (Escitalopram 10 Mg Tab) 20 mg PO BEDTIME ANKUR Last Admin: 05/04/21 21:43 Dose: 20 mg Documented by: Tranexamic Acid 1,000 mg/ (Sodium Chloride) 110 mls @ 660 mls/hr IV ONETIME PRN PRN Reason: Bleeding Ibuprofen (Ibuprofen 400 Mg Tab) 400 mg PO Q4H PRN PRN Reason: Pain (mild 1-3) Ibuprofen (Ibuprofen 800 Mg Tab) 800 mg PO Q6H PRN PRN Reason: Cramping Last Admin: 05/05/21 04:44 Dose: 800 mg Documented by: Methylergonovine Maleate (Methylergonovine 0.2 Mg/1 Ml Amp) 0.2 mg IM ONETIME PRN PRN Reason: Excessive Vaginal Bleeding Witch Helene (Witch Helene Medicated Pads 40/Jar) 1 pad TOP ASDIRECTED PRN PRN Reason: comfort care Last Admin: 05/04/21 15:09 Dose: 1 tub Documented by: Discontinued Medications Butorphanol Tartrate (Butorphanol 1 Mg/Ml Sdv) 1 mg IVPUSH Q1H PRN PRN Reason: Pain (severe 7-10) Carboprost Tromethamine (Carboprost Tromethamine 250 Mcg/1 Ml Amp) 250 mcg IM ASDIRECTED PRN PRN Reason: Post Hemorrhage Ephedrine Sulfate (Ephedrine 50 Mg/Ml Sdv) 10 mg IVPUSH Q1M PRN PRN Reason: Hypotension Ephedrine Sulfate (Ephedrine 50 Mg/Ml Sdv) 10 mg IVPUSH Q5M PRN PRN Reason: Hypotension Fentanyl (Fentanyl 100 Mcg/2 Ml Sdv) Confirm Administered Dose 100 mcg .ROUTE .STK-MED ONE Stop: 05/04/21 11:09 Fentanyl (Fentanyl 100 Mcg/2 Ml Sdv) Confirm Administered Dose 100 mcg .ROUTE .STK-MED ONE Stop: 05/05/21 07:17 Oxytocin/Sodium Chloride (Oxytocin 30 Unit In Ns 0.9% 500 Ml Premix) 30 unit in 500 mls @ 999 mls/hr IV TITRATE ANKUR Last Infusion: 05/04/21 13:04 Dose: 500 mls/hr Documented by: Tranexamic Acid 1,000 mg/ (Sodium Chloride) 110 mls @ 660 mls/hr IV ONETIME PRN PRN Reason: Bleeding Oxytocin/Sodium Chloride (Oxytocin 30 Unit In Ns 0.9% 500 Ml Premix) 30 unit in 500 mls @ 2 mls/hr IV TITRATE ANKUR; Protocol Last Titration: 05/04/21 12:48 Dose: 0 munits/min, 0 mls/hr Documented by: Lactated Ringer's (Ringers, Lactated) 1,000 mls @ 150 mls/hr IV ASDIRECTED ANKUR Last Admin: 05/04/21 06:05 Dose: 150 mls/hr Documented by: Ropivacaine (Naropin 0.2%) Confirm Administered Dose 200 mls @ as directed .ROUTE .STK-MED ONE Stop: 05/04/21 09:00 Last Admin: 05/05/21 07:39 Dose: Not Given Documented by: Propofol (Diprivan 100 Ml) Confirm Administered Dose 100 mls @ as directed .ROUTE .STK-MED ONE Stop: 05/05/21 07:18 Ketorolac Tromethamine (Ketorolac 30 Mg/Ml Sdv) Confirm Administered Dose 30 mg .ROUTE .STK-MED ONE Stop: 05/05/21 08:02 Lidocaine HCl (Lidocaine 1% 50 Ml Mdv) 50 ml INJECT ONETIME PRN PRN Reason: Laceration repair Lidocaine HCl (Lidocaine 2% 100 Mg/5 Ml Syringe) Confirm Administered Dose 100 mg .ROUTE .STK-MED ONE Stop: 05/04/21 11:09 Lidocaine HCl (Lidocaine 2% 100 Mg/5 Ml Syringe) Confirm Administered Dose 100 mg .ROUTE .STK-MED ONE Stop: 05/05/21 07:18 Methylergonovine Maleate (Methylergonovine 0.2 Mg/1 Ml Amp) 0.2 mg IM ASDIRECTED PRN PRN Reason: Post Hemorrhage Metoclopramide HCl (Metoclopramide 10 Mg/2 Ml Sdv) Confirm Administered Dose 10 mg .ROUTE .STK-MED ONE Stop: 05/05/21 08:01 Midazolam HCl (Midazolam 1 Mg/Ml 2 Ml Sdv) Confirm Administered Dose 2 mg .ROUTE .STK-MED ONE Stop: 05/05/21 08:01 Miscellaneous Medication (Phenylephrine Hcl In 0.9% Nacl 1 Mg/10 Ml Syringe) 0.1 mg IVPUSH Q1M PRN PRN Reason: Hypotension Misoprostol (Misoprostol 200 Mcg Tab) 200 mcg PO ONETIME PRN PRN Reason: Post Hemorrhage Nalbuphine HCl (Nalbuphine 10 Mg/1 Ml Vial) 10 mg IVPUSH Q1H PRN PRN Reason: Pain (severe 7-10) Ondansetron HCl (Ondansetron 4 Mg/2 Ml Sdv) 4 mg IVPUSH Q4H PRN PRN Reason: Nausea/Vomiting Ondansetron HCl (Ondansetron 4 Mg/2 Ml Sdv) Confirm Administered Dose 4 mg .ROUTE .STK-MED ONE Stop: 05/05/21 07:17 Ondansetron HCl (Ondansetron 4 Mg/2 Ml Sdv) Confirm Administered Dose 4 mg .ROUTE .STK-MED ONE Stop: 05/05/21 07:18 Ropivacaine (Ropivacaine/Pf 400 Mg/200 Ml Screwhead Polisher) 400 mg EPIDUR ASDIRECTED ANKUR Sodium Chloride (Sodium Chloride 0.9% 10 Ml Syringe) 10 ml FLUSH ASDIRECTED PRN PRN Reason: Keep Vein Open Sodium Chloride (Sodium Chloride 0.9% 2.5 Ml Syringe) 2.5 ml FLUSH ASDIRECTED PRN PRN Reason: Keep Vein Open Sodium Chloride (Sodium Chloride 0.9% 20 Ml Sdv) 10 ml IV ASDIRECTED PRN PRN Reason: IV Use Sterile Water (Water For Irrigation,Sterile 1,000 Ml Container) 1,000 ml IRR ASDIRECTED PRN PRN Reason: delivery Last Admin: 05/04/21 12:37 Dose: 1,000 ml Documented by: Terbutaline Sulfate (Terbutaline 1 Mg/Ml Sdv) 0.25 mg SUBCUT ASDIRECTED PRN PRN Reason: Tacysystole - Interaction Disposition, : in Room with Family Feeding: Bottle Fed Infant Support Person: - Recovery Exam Fundal Tone: Firm Fundal Level: At Umbilicus Fundal Placement: Midline Lochia Amount: Scant, Small Lochia Color: Rubra/Red Perineum Description: Other (see below) Other Perinuem Description: 2 degree laceration Episiotomy/Laceration: Approximated Bladder Status: Voiding - Exam General: Alert, Oriented Lungs: Normal Respiratory Effort GI/Abdominal Exam: Soft, Non-Tender, No Distention Extremities: Normal Inspection, Normal Range of Motion, Non-Tender, No Pedal Edema Skin: Warm, Dry, Intact Neurological: No New Focal Deficit Psy/Mental Status: Alert, Normal Affect, Normal Mood - Problem List & Annotations (1) Vaginal delivery SNOMED Code(s): 786190301 Code(s): O80 - ENCOUNTER FOR FULL-TERM UNCOMPLICATED DELIVERY Status: Acute Current Visit: No - Problem List Review Problem List Initiated/Reviewed/Updated: Yes - My Orders Last 24 Hours: My Active Orders 05/04/21 13:16 Patient Status [ADT] Routine May Shower [RC] ASDIRECTED Up ad Luciana [RC] ASDIRECTED Vital Signs [RC] PER UNIT ROUTINE Acetaminophen [Tylenol Extra Strength] 1,000 mg PO Q4H PRN Acetaminophen [Tylenol Extra Strength] 500 mg PO Q4H PRN Benzocaine/Menthol [Dermoplast Pain Relief 20%-0.5% Bunkie] 78 gm TOP ASDIRECTED PRN Docusate Sodium [Colace] 100 mg PO Q12H PRN Ibuprofen [Motrin] 400 mg PO Q4H PRN Ibuprofen [Motrin] 800 mg PO Q6H PRN Lanolin [Lansinoh HPA] See Dose Instructions TOP ASDIRECTED PRN Methylergonovine [Methergine] 0.2 mg IM ONETIME PRN Tranexamic Acid [Cyklokapron] 1,000 mg Sodium Chloride 0.9% [Normal Saline] 100 ml IV ONETIME bisacodyL [Dulcolax] 10 mg RECTAL ONETIME PRN witch Hleene [Tucks] 1 pad TOP ASDIRECTED PRN Assess Lochia [WOMSER] Per Unit Routine Assess Uterine Involution [WOMSER] Per Unit Routine Perineal Care [OM.PC] Per Unit Routine Peripheral IV Discontinue [OM.PC] Routine Resuscitation Status Routine 05/04/21 Dinner Regular Diet [DIET] 05/04/21 21:00 Escitalopram [Lexapro] 20 mg PO BEDTIME buPROPion [Wellbutrin XL] 150 mg PO BEDTIME 05/05/21 08:38 Ready for Discharge [RC] PER UNIT ROUTINE 05/05/21 09:00 Docusate Sodium [Colace] 100 mg PO DAILY - Assessment Assessment:: PPD#1 after , stable, minimal lochia, bottle feeding. Currently doing well on escitalopram and bupropion. Will continue - Plan Plan:: Discharge precautions reviewed.
[2021-05-05] MEDS ORDERED: Docusate Sodium 100 MG Cap PO SCH (09:00)
[2021-05-05] MEDS: buPROPion 150 MG Tab.ER PO SCH (20:50)
[2021-05-05] MEDS: Escitalopram 10 MG Tab PO SCH (20:50)
--- NOTE | 2021-05-06 09:09 | PCM.PNPP ---
- General Info Date of Service: 05/06/21 Functional Status: Reports: Pain Controlled, Tolerating Diet, Ambulating, Urinating - Review of Systems General: Reports: No Symptoms HEENT: Reports: No Symptoms Pulmonary: Reports: No Symptoms Cardiovascular: Reports: No Symptoms Gastrointestinal: Reports: No Symptoms Genitourinary: Reports: No Symptoms Musculoskeletal: Reports: No Symptoms Skin: Reports: No Symptoms Neurological: Reports: No Symptoms Psychiatric: Reports: No Symptoms - Patient Data Vital Signs - Most Recent: Last Vital Signs Temp 36.7 C 05/06/21 08:03 Pulse 92 05/06/21 08:03 Resp 17 05/06/21 05:15 BP 119/75 05/06/21 08:03 Pulse Ox 97 05/06/21 08:03 Weight - Most Recent: 92.079 kg Lab Results - Last 24 Hours: Laboratory Results - last 24 hr 05/04/21 Range/Units 05:10 RPR Non-Reac (Non-Reac) Med Orders - Current: Current Medications Acetaminophen (Acetaminophen 500 Mg Tab) 500 mg PO Q4H PRN PRN Reason: Pain (mild 1-3) Acetaminophen (Acetaminophen 500 Mg Tab) 1,000 mg PO Q4H PRN PRN Reason: Pain (mild 1-3) Last Admin: 05/05/21 22:13 Dose: 1,000 mg Documented by: Benzocaine/Menthol (Benzocaine/Menthol 20%-0.5% Roosevelt 78 Gm Cannister) 78 gm TOP ASDIRECTED PRN PRN Reason: Perineal Comfort Measure Last Admin: 05/04/21 15:09 Dose: 1 canister Documented by: Bisacodyl (Bisacodyl 10 Mg Supp) 10 mg RECTAL ONETIME PRN PRN Reason: Constipation Bupropion HCl (Bupropion 150 Mg Tab.Er) 150 mg PO BEDTIME [facility] Last Admin: 05/05/21 20:50 Dose: 150 mg Documented by: Docusate Sodium (Docusate Sodium 100 Mg Cap) 100 mg PO Q12H PRN PRN Reason: Constipation Docusate Sodium (Docusate Sodium 100 Mg Cap) 100 mg PO DAILY [facility] Last Admin: 05/05/21 11:34 Dose: Not Given Documented by: Emollient Ointment (Lanolin 100% Cream 7 Gm Tube) 0 gm TOP ASDIRECTED PRN PRN Reason: Sore Nipples Escitalopram Oxalate (Escitalopram 10 Mg Tab) 20 mg PO BEDTIME ANKUR Last Admin: 05/05/21 20:50 Dose: 20 mg Documented by: Tranexamic Acid 1,000 mg/ (Sodium Chloride) 110 mls @ 660 mls/hr IV ONETIME PRN PRN Reason: Bleeding Ibuprofen (Ibuprofen 400 Mg Tab) 400 mg PO Q4H PRN PRN Reason: Pain (mild 1-3) Ibuprofen (Ibuprofen 800 Mg Tab) 800 mg PO Q6H PRN PRN Reason: Cramping Last Admin: 05/05/21 22:13 Dose: 800 mg Documented by: Methylergonovine Maleate (Methylergonovine 0.2 Mg/1 Ml Amp) 0.2 mg IM ONETIME PRN PRN Reason: Excessive Vaginal Bleeding Witch Nirmala (Witch Nirmala Medicated Pads 40/Jar) 1 pad TOP ASDIRECTED PRN PRN Reason: comfort care Last Admin: 05/04/21 15:09 Dose: 1 tub Documented by: Discontinued Medications Butorphanol Tartrate (Butorphanol 1 Mg/Ml Sdv) 1 mg IVPUSH Q1H PRN PRN Reason: Pain (severe 7-10) Carboprost Tromethamine (Carboprost Tromethamine 250 Mcg/1 Ml Amp) 250 mcg IM ASDIRECTED PRN PRN Reason: Post Hemorrhage Ephedrine Sulfate (Ephedrine 50 Mg/Ml Sdv) 10 mg IVPUSH Q1M PRN PRN Reason: Hypotension Ephedrine Sulfate (Ephedrine 50 Mg/Ml Sdv) 10 mg IVPUSH Q5M PRN PRN Reason: Hypotension Fentanyl (Fentanyl 100 Mcg/2 Ml Sdv) Confirm Administered Dose 100 mcg .ROUTE .STK-MED ONE Stop: 05/04/21 11:09 Fentanyl (Fentanyl 100 Mcg/2 Ml Sdv) Confirm Administered Dose 100 mcg .ROUTE .STK-MED ONE Stop: 05/05/21 07:17 Oxytocin/Sodium Chloride (Oxytocin 30 Unit In Ns 0.9% 500 Ml Premix) 30 unit in 500 mls @ 999 mls/hr IV TITRATE [facility] Last Infusion: 05/04/21 13:04 Dose: 500 mls/hr Documented by: Tranexamic Acid 1,000 mg/ (Sodium Chloride) 110 mls @ 660 mls/hr IV ONETIME PRN PRN Reason: Bleeding Oxytocin/Sodium Chloride (Oxytocin 30 Unit In Ns 0.9% 500 Ml Premix) 30 unit in 500 mls @ 2 mls/hr IV TITRATE ANKUR; Protocol Last Titration: 05/04/21 12:48 Dose: 0 munits/min, 0 mls/hr Documented by: Lactated Ringer's (Ringers, Lactated) 1,000 mls @ 150 mls/hr IV ASDIRECTED ANKUR Last Admin: 05/04/21 06:05 Dose: 150 mls/hr Documented by: Ropivacaine (Naropin 0.2%) Confirm Administered Dose 200 mls @ as directed .ROUTE .STK-MED ONE Stop: 05/04/21 09:00 Last Admin: 05/05/21 07:39 Dose: Not Given Documented by: Propofol (Diprivan 100 Ml) Confirm Administered Dose 100 mls @ as directed .ROUTE .STK-MED ONE Stop: 05/05/21 07:18 Ketorolac Tromethamine (Ketorolac 30 Mg/Ml Sdv) Confirm Administered Dose 30 mg .ROUTE .STK-MED ONE Stop: 05/05/21 08:02 Lidocaine HCl (Lidocaine 1% 50 Ml Mdv) 50 ml INJECT ONETIME PRN PRN Reason: Laceration repair Lidocaine HCl (Lidocaine 2% 100 Mg/5 Ml Syringe) Confirm Administered Dose 100 mg .ROUTE .STK-MED ONE Stop: 05/04/21 11:09 Lidocaine HCl (Lidocaine 2% 100 Mg/5 Ml Syringe) Confirm Administered Dose 100 mg .ROUTE .STK-MED ONE Stop: 05/05/21 07:18 Methylergonovine Maleate (Methylergonovine 0.2 Mg/1 Ml Amp) 0.2 mg IM ASDIRECTED PRN PRN Reason: Post Hemorrhage Metoclopramide HCl (Metoclopramide 10 Mg/2 Ml Sdv) Confirm Administered Dose 10 mg .ROUTE .STK-MED ONE Stop: 05/05/21 08:01 Midazolam HCl (Midazolam 1 Mg/Ml 2 Ml Sdv) Confirm Administered Dose 2 mg .ROUTE .STK-MED ONE Stop: 05/05/21 08:01 Miscellaneous Medication (Phenylephrine Hcl In 0.9% Nacl 1 Mg/10 Ml Syringe) 0.1 mg IVPUSH Q1M PRN PRN Reason: Hypotension Misoprostol (Misoprostol 200 Mcg Tab) 200 mcg PO ONETIME PRN PRN Reason: Post Hemorrhage Nalbuphine HCl (Nalbuphine 10 Mg/1 Ml Vial) 10 mg IVPUSH Q1H PRN PRN Reason: Pain (severe 7-10) Ondansetron HCl (Ondansetron 4 Mg/2 Ml Sdv) 4 mg IVPUSH Q4H PRN PRN Reason: Nausea/Vomiting Ondansetron HCl (Ondansetron 4 Mg/2 Ml Sdv) Confirm Administered Dose 4 mg .ROUTE .STK-MED ONE Stop: 05/05/21 07:17 Ondansetron HCl (Ondansetron 4 Mg/2 Ml Sdv) Confirm Administered Dose 4 mg .ROUTE .STK-MED ONE Stop: 05/05/21 07:18 Ropivacaine (Ropivacaine/Pf 400 Mg/200 Ml Aerobics Teacher) 400 mg EPIDUR ASDIRECTED ANKUR Sodium Chloride (Sodium Chloride 0.9% 10 Ml Syringe) 10 ml FLUSH ASDIRECTED PRN PRN Reason: Keep Vein Open Sodium Chloride (Sodium Chloride 0.9% 2.5 Ml Syringe) 2.5 ml FLUSH ASDIRECTED PRN PRN Reason: Keep Vein Open Sodium Chloride (Sodium Chloride 0.9% 20 Ml Sdv) 10 ml IV ASDIRECTED PRN PRN Reason: IV Use Sterile Water (Water For Irrigation,Sterile 1,000 Ml Container) 1,000 ml IRR ASDIRECTED PRN PRN Reason: delivery Last Admin: 05/04/21 12:37 Dose: 1,000 ml Documented by: Terbutaline Sulfate (Terbutaline 1 Mg/Ml Sdv) 0.25 mg SUBCUT ASDIRECTED PRN PRN Reason: Tacysystole - Interaction Infant Disposition, : [place] in Room with Family Feeding: Bottle Fed Support Person: - Recovery Exam Fundal Tone: Firm Fundal Level: 1 Fingerbreadths Below Umbilicus Fundal Placement: Midline Lochia Amount: Scant Lochia Color: Rubra/Red Perineum Description: Other (see below) Other Perinuem Description: 2nd laceration with repair. Episiotomy/Laceration: Approximated Bladder Status: Voiding - Exam General: Alert, Oriented Lungs: Normal Respiratory Effort Extremities: Normal Inspection, Non-Tender, No Pedal Edema Neurological: No New Focal Deficit Psy/Mental Status: Alert, Normal Affect, Normal Mood - Problem List & Annotations (1) Vaginal delivery SNOMED Code(s): 011123109 Code(s): O80 - ENCOUNTER FOR FULL-TERM UNCOMPLICATED DELIVERY Status: Acute Current Visit: No - Problem List Review Problem List Initiated/Reviewed/Updated: Yes - My Orders Last 24 Hours: My Active Orders 05/05/21 09:00 Docusate Sodium [Colace] 100 mg PO DAILY - Assessment Assessment:: PPD#2 after , stable, minimal lochia, bottle feeding. Baby was kept for elevated bilirubin, anticipate discharge today. - Plan Plan:: Discharge precautions reviewed.
== END 2021-05-06 11:13 | disposition home or self-care (01) | DRG 560 ==
LOC: MW.OBCHECK 04:41 → MW.OB 04:42 → MW.OBCHECK 05:13 → INTOOBSV 12:47 → OBSVTOIN 12:47 → MW.OB 18:31
PROVIDERS: ADMIT Obstetrics & Gynecology; ATTEND Obstetrics & Gynecology
PROC: 10E0XZZ Delivery of Products of Conception, External Approach (ICD-10-PCS; principal; 2021-05-04)
PROC: 10907ZC Drainage of Amniotic Fluid, Therapeutic from Products of Conception, Via Natural or Artificial Opening (ICD-10-PCS; 2021-05-04)
PROC: 0KQM0ZZ Repair Perineum Muscle, Open Approach (ICD-10-PCS; 2021-05-04)
PROC: 3E0R3BZ Introduction of Anesthetic Agent into Spinal Canal, Percutaneous Approach (ICD-10-PCS; 2021-05-04)
PROC: 00HU33Z Insertion of Infusion Device into Spinal Canal, Percutaneous Approach (ICD-10-PCS; 2021-05-04)
DX: O70.1 Second degree perineal laceration during delivery (principal); Z3A.39 39 weeks gestation of pregnancy; Z37.0 Single live birth
CPT/HCPCS: 36415; 51702; 59025; 59409; 82803; 85014; 85018; 85027; 86592; 86850; 86900; 86901; A9270-GY; J1885; J2250; J2405; J2590; J2704; J2765; J2795; J3010; J7120; U0002